=== PATIENT | male | born 1970 | race African-American/Black ===

== ENCOUNTER 2024-01-24 21:33 | Inpatient (IN) | payer MEDICAID ==
[~2024-01-24] VITALS: Ht 182.9 cm; Wt 61.2 kg
[2024-01-25 00:13] LABS: CHLORIDE 94 mEq/L (98-107); POTASSIUM 4.3 mEq/L (3.5-5.1); SODIUM 127 mEq/L (136-145)
[2024-01-25 00:14] LABS: CALCIUM 8.4 mg/dL (8.7-10.4); CARBON DIOXIDE 23 mEq/L (21-32)
[2024-01-25] MEDS: SODIUM CHLORIDE 0.9% 1,000 ML IV ONE (00:15)
[2024-01-25 00:17] LABS: HEMATOCRIT. 44.3 % (42.0-52.0); HEMOGLOBIN. 14.1 g/dL (14.0-18.0); MEAN CORPUSCULAR HEMOGLOBIN 24.8 pg (28.0-32.0); MEAN CORPUSCULAR HGB CONC 31.8 g/dL (31.0-37.0); MEAN CORPUSCULAR VOLUME 77.8 fL (80.0-94.0); MEAN PLATELET VOLUME 8.9 fl (7.4-10.4); PLATELET 193 x1000/uL (130-400); RED CELL DISTRIBUTION WIDTH 13.5 % (11.6-14.6); WHITE BLOOD COUNT 7.2 x1000/uL (4.5-11.0)
[2024-01-25 00:19] LABS: CREATININE 1.2 mg/dL (0.6-1.3); GLUCOSE 301 mg/dL (70-105)
[2024-01-25 00:20] LABS: UREA NITROGEN BLOOD 32 mg/dL (9-23)
[2024-01-25 00:21] LABS: ALANINE AMINOTRANSFERASE 50 IU/L (10-49); ALBUMIN 3.5 g/dL (3.2-4.8); ASPARTATE AMINOTRANSFERASE 61 IU/L (<34); BILIRUBIN DIRECT 0.1 mg/dL (<=3.0)
[2024-01-25 00:22] LABS: BETA HYDROXYBUTYRATE 1.3 mMol/L (0.0-0.3); BILIRUBIN TOTAL 0.4 mg/dL (0.1-1.0); PROTEIN TOTAL 6.2 g/dL (6.0-8.3)
[2024-01-25 00:24] LABS: ETHANOL BLOOD < 10 mg/dL (<10)
[2024-01-25 00:25] LABS: DIFFERENTIAL COMMENT 1
[2024-01-25] MEDS ORDERED: AZITHROMYCIN 500MG/250ML 250 ML IV SCH ×2 (01:45→09:00)
[2024-01-25] MEDS ORDERED: AZITHROMYCIN 500MG/250ML 250 ML IV NR (02:15)
[2024-01-25] MEDS: CEFTRIAXONE 1GM/50ML 50 ML IV ONE (02:21)
[2024-01-25] MEDS: ONDANSETRON HCL 4MG/2ML INJ IV ONE (03:02)
[2024-01-25] MEDS: HYDROCODONE/ACETAMINOPHEN 5/325MG TABLET PO ONE (03:02)
[2024-01-25] MEDS ORDERED: IPRATROPIUM/ALBUTEROL 0.5-3(2.5)MG/3ML NEB HHN PRN (05:00)
[2024-01-25] MEDS ORDERED: CLONIDINE 0.1MG TABLET PO PRN (05:00)
[2024-01-25] MEDS ORDERED: DOCUSATE SODIUM 100MG CAPSULE PO PRN (05:00)
[2024-01-25] MEDS ORDERED: MAGNESIUM/ALUMINUM HYDROXIDE/SIMETHICONE 30ML UDC PO PRN (05:00)
[2024-01-25] MEDS ORDERED: DEXTROSE 50% WATER 50ML SYRINGE IV PRN ×2 (05:00→13:30)
[2024-01-25] MEDS ORDERED: ACETAMINOPHEN 325MG TABLET PO PRN (05:00)
[2024-01-25 05:29] LABS: PLATELET ESTIMATE NORMAL
[2024-01-25 05:30] LABS: HYPOCHROMASIA 1+; MICROCYTOSIS 1+
[2024-01-25] MEDS ORDERED: LOSA50TA41 PO (05:51)
[2024-01-25] MEDS ORDERED: INSU100I95 SUBCUT (05:51)
[2024-01-25] MEDS ORDERED: ATOR20TA65 PO (05:52)
[2024-01-25] MEDS: VANCOMYCIN 1.5GM/250ML IV NR (06:06)
[2024-01-25] MEDS: INSULIN REGULAR (HUMULIN R) 1000UNITS/10ML VIAL IV NR (06:14)
[2024-01-25] MEDS ORDERED: INSULIN LISPRO 100 UNITS/ML SUBCUT SCH (08:20)
[2024-01-25 08:46] LABS: CALCIUM 8.2 mg/dL (8.7-10.4); CARBON DIOXIDE 23 mEq/L (21-32); CHLORIDE 97 mEq/L (98-107); POTASSIUM 4.3 mEq/L (3.5-5.1); SODIUM 128 mEq/L (136-145)
[2024-01-25 08:51] LABS: CREATININE 1.2 mg/dL (0.6-1.3); GLUCOSE 283 mg/dL (70-105); IRON 13 ug/dL (65-175)
[2024-01-25 08:52] LABS: LDL CHOLESTEROL 61 mg/dL (5-100); TRIGLYCERIDE 91 mg/dL (0-150); TROPONIN I HIGH SENSITIVITY 6 ng/L (3.0-53); UREA NITROGEN BLOOD 32 mg/dL (9-23)
[2024-01-25 08:53] LABS: CHOLESTEROL 147 mg/dL (<200); HDL CHOLESTEROL 52 mg/dL (>55)
[2024-01-25 08:54] LABS: PHOSPHORUS 2.7 mg/dL (2.5-4.9)
[2024-01-25 08:55] LABS: T4 FREE 1.07 ng/dL (0.89-1.76)
[2024-01-25 08:56] LABS: THYROID STIMULATING HORMONE 2.23 uIU/mL (0.55-4.78)
[2024-01-25] MEDS ORDERED: ATORVASTATIN CALCIUM 20MG TABLET PO SCH (09:00)
[2024-01-25 09:39] LABS: TOTAL IRON BINDING CAPACITY 215 ug/dl (250-425)
[2024-01-25] MEDS ORDERED: SODIUM CHLORIDE 0.9% 1,000 ML IV ONE (09:45)
[2024-01-25] MEDS: BLOOD SUGAR DIAGNOSTIC STRIP TEST SCH ×2 (10:11→14:25)
[2024-01-25] MEDS ORDERED: FOLIC ACID 1 MG, THIAMINE HCL 100 MG, MVI, ADULT NO.1 10 ML in DEXTROSE 5% WATER 1,000 ML IV ONE (11:00)
[2024-01-25 11:10] VITALS: BP 150/86; PULSE 72; RESP 18; TEMP 36.2512
[2024-01-25] MEDS: MULTIVITAMINS,THER W-MINERALS TABLET PO SCH (14:00)
[2024-01-25] MEDS: THIAMINE HCL 100MG TABLET PO SCH (14:01)
[2024-01-25] MEDS: LOSARTAN 50 MG TABLET PO SCH (14:01)
[2024-01-25] MEDS: FOLIC ACID 1MG TABLET PO SCH (14:01)
[2024-01-25] MEDS: INSULIN GLARGINE 100 UNITS/ML SUBCUT SCH (14:23)
[2024-01-25] MEDS: INSULIN LISPRO 100 UNITS/ML SUBCUT SCH (14:25)
[2024-01-25] MEDS: AZITHROMYCIN 500MG/250ML 250 ML IV SCH (15:08)
[2024-01-25] MEDS: ONDANSETRON HCL 4MG/2ML INJ IV PRN (15:37)
[2024-01-25 16:00] VITALS: BP 127/85; PULSE 84; RESP 20; TEMP 36.33624; O2SAT 98
[2024-01-25] MEDS: FOLIC ACID 1 MG, THIAMINE HCL 100 MG, MVI, ADULT NO.1 10 ML in DEXTROSE 5% WATER 1,000 ML IV ONE (18:14)
[2024-01-25 20:00] VITALS: BP 107/72; PULSE 77; RESP 18; TEMP 37.00296; O2SAT 97
[2024-01-25] MEDS ORDERED: VANCOMYCIN 750MG/150ML (BAXTER) IV SCH (21:00)
[2024-01-25] MEDS: FAMOTIDINE 20MG TABLET PO SCH (21:37)
[2024-01-25] MEDS: VANCOMYCIN 750MG/150ML (BAXTER) IV SCH (21:37)
[2024-01-25] MEDS: ATORVASTATIN CALCIUM 20MG TABLET PO SCH (21:37)
[2024-01-26] VITALS (10 sets, daily range): BP systolic 94–138; BP diastolic 53–90; PULSE 59–81; RESP 18–20; TEMP 36.05844–36.89184; O2SAT 92–100
[2024-01-26 00:04] LABS: CLARITY URINE CLEAR (CLEAR); COLOR URINE YELLOW (YELLOW); GLUCOSE URINE 3+ (NEGATIVE); KETONES URINE NEGATIVE (NEGATIVE); LEUKOCYTE ESTERASE URINE NEGATIVE (NEGATIVE); NITRITE URINE NEGATIVE (NEGATIVE); OCCULT BLOOD URINE NEGATIVE (NEGATIVE); PROTEIN URINE 2+ (NEGATIVE)
[2024-01-26 00:13] LABS: *AMPHETAMINES SCREEN URINE NEGATIVE (NEGATIVE); *BARBITURATES SCREEN URINE NEGATIVE (NEGATIVE); *BENZODIAZEPINES SCREEN URINE NEGATIVE (NEGATIVE); *COCAINE SCREEN URINE NEGATIVE (NEGATIVE); CANNABINOID URINE SCREEN PRESUMPTIVE POSITIVE (NEGATIVE); ECSTASY MDMA SCREEN URINE NEGATIVE (NEGATIVE); METHADONE URINE SCREEN NEGATIVE (NEGATIVE); OPIATES URINE SCREEN NEGATIVE (NEGATIVE); PHENCYCLIDINE URINE SCREEN NEGATIVE (NEGATIVE)
[2024-01-26 00:53] LABS: BACTERIA URINE TRACE; RBC URINE NONE SEEN /hpf (0-2); SQUAMOUS EPITHELIAL CELL URINE NONE SEEN /lpf (RARE/1+); WBC URINE NONE SEEN /hpf (0-2)
[2024-01-26] MEDS ORDERED: CEFTRIAXONE 1GM/50ML 50 ML IV SCH ×2 (01:00→05:00)
[2024-01-26] MEDS: CEFTRIAXONE 1GM/50ML 50 ML IV SCH (01:14)
[2024-01-26] MEDS: IPRATROPIUM/ALBUTEROL 0.5-3(2.5)MG/3ML NEB HHN SCH (03:38)
[2024-01-26] MEDS: INSULIN LISPRO 100 UNITS/ML SUBCUT SCH ×2 (06:58→09:47)
[2024-01-26] MEDS ORDERED: DEXTROSE 50% WATER 50ML SYRINGE IV PRN (07:00)
[2024-01-26 07:53] LABS: BASOPHILS % 0.1 % (0.0-2.0); DIFFERENTIAL COMMENT 0; EOSINOPHILS % 0.2 % (0.0-5.0); HEMATOCRIT. 40.9 % (42.0-52.0); HEMOGLOBIN. 12.7 g/dL (14.0-18.0); LYMPHOCYTES % 10.3 % (20.0-50.0); MEAN CORPUSCULAR HEMOGLOBIN 24.5 pg (28.0-32.0); MEAN CORPUSCULAR HGB CONC 31.2 g/dL (31.0-37.0); MEAN CORPUSCULAR VOLUME 78.7 fL (80.0-94.0); MEAN PLATELET VOLUME 9.1 fl (7.4-10.4); MONOCYTES % 5.4 % (2.0-8.0); PLATELET 188 x1000/uL (130-400); RED BLOOD CELL COUNT 5.19 mill/uL (4.7-6.1); RED CELL DISTRIBUTION WIDTH 13.6 % (11.6-14.6); WHITE BLOOD COUNT 6.6 x1000/uL (4.5-11.0)
[2024-01-26 08:05] LABS: CARBON DIOXIDE 23 mEq/L (21-32); CHLORIDE 98 mEq/L (98-107); SODIUM 129 mEq/L (136-145)
[2024-01-26 08:06] LABS: CALCIUM 8.3 mg/dL (8.7-10.4)
[2024-01-26 08:09] LABS: CREATININE 1.2 mg/dL (0.6-1.3)
[2024-01-26 08:10] LABS: GLUCOSE 379 mg/dL (70-105)
[2024-01-26 08:11] LABS: UREA NITROGEN BLOOD 27 mg/dL (9-23)
[2024-01-26] MEDS: BLOOD SUGAR DIAGNOSTIC STRIP TEST SCH (08:31)
[2024-01-26] MEDS: ACETYLCYSTEINE 200MG/ML 20% VIAL 4ML INH SCH (09:21)
[2024-01-26] MEDS: GUAIFENESIN 200MG/10ML SUGAR FREE UDC PO PRN (09:46)
[2024-01-26] MEDS: LORAZEPAM 2MG/ML INJ IV PRN (09:46)
[2024-01-26] MEDS: INSULIN REGULAR (HUMULIN R) 1000UNITS/10ML VIAL IV NR (09:47)
[2024-01-26] MEDS: INSULIN GLARGINE 100 UNITS/ML SUBCUT SCH ×2 (09:48→21:11)
[2024-01-26] MEDS: ENOXAPARIN 40MG/0.4ML SYR SUBCUT SCH (09:49)
[2024-01-26] MEDS: BENZONATATE 100MG CAPSULE PO PRN (11:24)
[2024-01-27] VITALS (10 sets, daily range): BP systolic 121–143; BP diastolic 74–81; PULSE 62–88; RESP 18–20; TEMP 36.55848–36.89184; O2SAT 96–100
[2024-01-27] MEDS: INSULIN GLARGINE 100 UNITS/ML SUBCUT SCH ×2 (10:53→21:10)
[2024-01-27 18:12] LABS: BASOPHILS % 0.3 % (0.0-2.0); DIFFERENTIAL COMMENT 0; EOSINOPHILS % 0.5 % (0.0-5.0); HEMATOCRIT. 37.4 % (42.0-52.0); HEMOGLOBIN. 11.9 g/dL (14.0-18.0); LYMPHOCYTES % 11.8 % (20.0-50.0); MEAN CORPUSCULAR HEMOGLOBIN 24.8 pg (28.0-32.0); MEAN CORPUSCULAR HGB CONC 31.7 g/dL (31.0-37.0); MEAN CORPUSCULAR VOLUME 78.3 fL (80.0-94.0); MEAN PLATELET VOLUME 9.5 fl (7.4-10.4); MONOCYTES % 11.6 % (2.0-8.0); NEUTROPHILS % 75.8 % (40.0-76.0); PLATELET 232 x1000/uL (130-400); RED BLOOD CELL COUNT 4.78 mill/uL (4.7-6.1); RED CELL DISTRIBUTION WIDTH 13.3 % (11.6-14.6); WHITE BLOOD COUNT 8.7 x1000/uL (4.5-11.0)
[2024-01-27 18:17] LABS: CHLORIDE 102 mEq/L (98-107); POTASSIUM 3.6 mEq/L (3.5-5.1); SODIUM 135 mEq/L (136-145)
[2024-01-27 18:18] LABS: CARBON DIOXIDE 23 mEq/L (21-32)
[2024-01-27 18:23] LABS: CREATININE 1.1 mg/dL (0.6-1.3); UREA NITROGEN BLOOD 20 mg/dL (9-23)
[2024-01-27 18:24] LABS: GLUCOSE 143 mg/dL (70-105)
[2024-01-27] MEDS: METOPROLOL TARTRATE 25MG TABLET PO SCH (21:10)
[2024-01-27] MEDS ORDERED: INSULIN GLARGINE 100 UNITS/ML SUBCUT SCH (22:00)
[2024-01-28 02:40] VITALS: PULSE 85; RESP 18; O2SAT 98
[2024-01-28 08:00] VITALS: BP 152/91; PULSE 79; RESP 16; TEMP 36.33624; O2SAT 99
[2024-01-28 08:26] LABS: BASOPHILS % 0.4 % (0.0-2.0); DIFFERENTIAL COMMENT 0; EOSINOPHILS % 0.4 % (0.0-5.0); HEMATOCRIT. 36.3 % (42.0-52.0); HEMOGLOBIN. 11.6 g/dL (14.0-18.0); MEAN CORPUSCULAR HEMOGLOBIN 24.9 pg (28.0-32.0); MEAN CORPUSCULAR VOLUME 77.9 fL (80.0-94.0); MONOCYTES % 14.7 % (2.0-8.0); NEUTROPHILS % 68.5 % (40.0-76.0); PLATELET 269 x1000/uL (130-400); RED BLOOD CELL COUNT 4.66 mill/uL (4.7-6.1); RED CELL DISTRIBUTION WIDTH 13.4 % (11.6-14.6); WHITE BLOOD COUNT 9.3 x1000/uL (4.5-11.0)
[2024-01-28 08:32] LABS: CHLORIDE 106 mEq/L (98-107); POTASSIUM 3.6 mEq/L (3.5-5.1); SODIUM 137 mEq/L (136-145)
[2024-01-28 08:33] LABS: CARBON DIOXIDE 25 mEq/L (21-32)
[2024-01-28 08:38] LABS: CREATININE 1.1 mg/dL (0.6-1.3); GLUCOSE 98 mg/dL (70-105); UREA NITROGEN BLOOD 17 mg/dL (9-23)
[2024-01-28] MEDS: LOSARTAN 25 MG TABLET PO SCH (09:49)
[2024-01-28] MEDS: AZITHROMYCIN 500 MG TABLET PO SCH (10:20)
[2024-01-28] MEDS: FAMOTIDINE 20MG TABLET PO SCH (10:20)
[2024-01-28 12:00] VITALS: BP 144/79; PULSE 77; RESP 18; TEMP 36.22512; O2SAT 99
[2024-01-28] MEDS: INSULIN LISPRO 100 UNITS/ML SUBCUT SCH (13:28)
[2024-01-28 13:50] VITALS: PULSE 69; RESP 16; O2SAT 97
[2024-01-28 16:00] VITALS: BP 147/86; PULSE 86; RESP 20; TEMP 36.22512; O2SAT 96
[2024-01-28 20:00] VITALS: BP 123/58; PULSE 92; RESP 19; TEMP 38.16972; O2SAT 98
[2024-01-28] MEDS: INSULIN GLARGINE 100 UNITS/ML SUBCUT SCH (21:14)
[2024-01-29] VITALS (10 sets, daily range): BP systolic 117–150; BP diastolic 55–80; PULSE 79–97; RESP 16–20; TEMP 36.114–36.78072; O2SAT 97–100
[2024-01-29 08:37] LABS: CHLORIDE 104 mEq/L (98-107); POTASSIUM 4.3 mEq/L (3.5-5.1); SODIUM 137 mEq/L (136-145)
[2024-01-29 08:38] LABS: CALCIUM 9.2 mg/dL (8.7-10.4); CARBON DIOXIDE 24 mEq/L (21-32)
[2024-01-29 08:43] LABS: CREATININE 1.2 mg/dL (0.6-1.3); UREA NITROGEN BLOOD 18 mg/dL (9-23)
[2024-01-29 08:50] LABS: GLUCOSE 309 mg/dL (70-105)
[2024-01-29 09:02] LABS: BASOPHILS % 0.4 % (0.0-2.0); DIFFERENTIAL COMMENT 0; EOSINOPHILS % 0.5 % (0.0-5.0); HEMATOCRIT. 36.5 % (42.0-52.0); HEMOGLOBIN. 11.7 g/dL (14.0-18.0); LYMPHOCYTES % 16.7 % (20.0-50.0); MEAN CORPUSCULAR HEMOGLOBIN 25.2 pg (28.0-32.0); MEAN CORPUSCULAR HGB CONC 32.2 g/dL (31.0-37.0); MEAN CORPUSCULAR VOLUME 78.3 fL (80.0-94.0); MEAN PLATELET VOLUME 9.2 fl (7.4-10.4); MONOCYTES % 13.7 % (2.0-8.0); NEUTROPHILS % 68.7 % (40.0-76.0); PLATELET 327 x1000/uL (130-400); RED BLOOD CELL COUNT 4.66 mill/uL (4.7-6.1); RED CELL DISTRIBUTION WIDTH 13.4 % (11.6-14.6)
[2024-01-29] MEDS: INSULIN GLARGINE 100 UNITS/ML SUBCUT SCH (09:11)
[2024-01-30] VITALS: BP 144/67; PULSE 92; RESP 19; TEMP 36.3918; O2SAT 98
[2024-01-30 03:08] VITALS: PULSE 75; RESP 18; O2SAT 97
[2024-01-30 06:55] LABS: CARBON DIOXIDE 25 mEq/L (21-32); CHLORIDE 106 mEq/L (98-107); SODIUM 139 mEq/L (136-145)
[2024-01-30 06:56] LABS: CALCIUM 8.8 mg/dL (8.7-10.4)
[2024-01-30 07:01] LABS: CREATININE 1.1 mg/dL (0.6-1.3); GLUCOSE 171 mg/dL (70-105); UREA NITROGEN BLOOD 17 mg/dL (9-23)
[2024-01-30 07:26] LABS: HEMATOCRIT 35.5 % (42.0-52.0); HEMOGLOBIN 11.5 g/dL (14.0-18.0); MEAN CORPUSCULAR HEMOGLOBIN 25.4 pg (28.0-32.0); MEAN CORPUSCULAR HGB CONC 32.3 g/dL (31.0-37.0); MEAN CORPUSCULAR VOLUME 78.5 fL (80.0-94.0); PLATELET 364 x1000/uL (130-400); RED BLOOD CELL COUNT 4.52 mill/uL (4.7-6.1); RED CELL DISTRIBUTION WIDTH 13.3 % (11.6-14.6); WHITE BLOOD COUNT 8.6 x1000/uL (4.5-11.0)
[2024-01-30 08:00] VITALS: BP 149/87; PULSE 92; RESP 18; TEMP 36.05844; O2SAT 93
[2024-01-30] MEDS ORDERED: LANTUSUD SUBCUT ×2 (11:01)
[2024-01-30] MEDS ORDERED: ATOR20TA PO (11:01)
[2024-01-30] MEDS ORDERED: INSLIS SUBCUT (11:01)
[2024-01-30] MEDS ORDERED: METO25TA6 PO (11:01)
[2024-01-30] MEDS ORDERED: FOLI-43 PO (11:01)
[2024-01-30] MEDS ORDERED: LOSA25TA26 PO (11:01)
[2024-01-30] MEDS ORDERED: AMOX1TAB16 MT (11:01)
[2024-01-30] MEDS ORDERED: SULF1TAB48 MT (11:02)
[2024-01-30 12:00] VITALS: RESP 18
[2024-01-30 14:53] VITALS: BP 149/87; PULSE 75; TEMP 96.9; O2SAT 93
== END 2024-01-30 15:55 | disposition home or self-care (01) | DRG 133 ==
LOC: ER 21:33 → 7WST 01-25 01:36
PROVIDERS: ADMIT Preventive Medicine Clinical Informatics; ATTEND Preventive Medicine Clinical Informatics
DX: J96.01 Acute respiratory failure with hypoxia (principal); J15.9 Unspecified bacterial pneumonia; J12.9 Viral pneumonia, unspecified; R65.10 Systemic inflammatory response syndrome (SIRS) of non-infectious origin without acute organ dysfunction; E87.1 Hypo-osmolality and hyponatremia; I47.10 Supraventricular tachycardia, unspecified; E11.65 Type 2 diabetes mellitus with hyperglycemia; D64.9 Anemia, unspecified; I10 Essential (primary) hypertension; D50.9 Iron deficiency anemia, unspecified; Z20.822 Contact with and (suspected) exposure to COVID-19; R74.01 Elevation of levels of liver transaminase levels; F10.10 Alcohol abuse, uncomplicated; Y90.9 Presence of alcohol in blood, level not specified; E78.00 Pure hypercholesterolemia, unspecified; F15.10 Other stimulant abuse, uncomplicated; F17.210 Nicotine dependence, cigarettes, uncomplicated; Z53.20 Procedure and treatment not carried out because of patient's decision for unspecified reasons; Z91.148 Patient's other noncompliance with medication regimen for other reason; Z79.4 Long term (current) use of insulin; Z59.01 Sheltered homelessness; Z79.84 Long term (current) use of oral hypoglycemic drugs; Z79.899 Other long term (current) drug therapy; Z83.3 Family history of diabetes mellitus; Z88.0 Allergy status to penicillin
CPT/HCPCS: 36415; 71045; 80048; 80061; 80076; 80202; 80305; 80320; 81003; 82010; 82728; 82962; 83036; 83540; 83550; 83605; 83735; 83880; 84100; 84145; 84439; 84443; 84484; 85025; 85027; 87070; 87426; 87449; 87804; 93005; 93306; 94070; 94640; 97161; 97165; 99285; J0456; J0696; J1650; J1815; J2060; J2405; J3370; J3411; J3490; J7030; J7070; J7608; G0480

== ENCOUNTER 2024-08-18 22:31 | Emergency (ER) | payer MEDICAID ==
[~2024-08-18] VITALS: Ht 182.9 cm; Wt 82.0 kg
[~2024-08-18 22:31] MED LIST: AMOX1TAB16 MT; ATOR20TA PO; ATOR20TA65 PO; FOLI-43 PO; INSLIS SUBCUT; INSU100I95 SUBCUT; LANTUSUD SUBCUT; LOSA25TA26 PO; METO25TA6 PO; SULF1TAB48 MT
[2024-08-18 22:33] VITALS: TEMP 37.1; O2SAT 96
[2024-08-18] MEDS: SODIUM CHLORIDE 0.9% 1,000 ML IV ONE (23:16)
[2024-08-18 23:22] LABS: CLARITY URINE CLEAR (CLEAR); COLOR URINE YELLOW (YELLOW); GLUCOSE URINE 3+ (NEGATIVE); KETONES URINE TRACE (NEGATIVE); LEUKOCYTE ESTERASE URINE NEGATIVE (NEGATIVE); NITRITE URINE NEGATIVE (NEGATIVE); OCCULT BLOOD URINE NEGATIVE (NEGATIVE); PH URINE 6.5 (4.5-8.0); PROTEIN URINE NEGATIVE (NEGATIVE); SPECIFIC GRAVITY URINE 1.023 (1.005-1.030); UROBILINOGEN URINE 0.2 E.U./dL (0.2-1.0)
[2024-08-18 23:29] LABS: BASOPHILS % 0.2 % (0.0-2.0); EOSINOPHILS % 0.1 % (0.0-5.0); HEMATOCRIT. 40.4 % (42.0-52.0); HEMOGLOBIN. 12.6 g/dL (14.0-18.0); LYMPHOCYTES % 9.4 % (20.0-50.0); MEAN PLATELET VOLUME 9.2 fl (7.4-10.4); MONOCYTES % 6.6 % (2.0-8.0); NEUTROPHILS % 83.7 % (40.0-76.0); PLATELET 227 x1000/uL (130-400); RED BLOOD CELL COUNT 5.20 mill/uL (4.7-6.1); RED CELL DISTRIBUTION WIDTH 14.2 % (11.6-14.6)
[2024-08-18] MEDS: INSULIN REGULAR (HUMULIN R) 1000UNITS/10ML VIAL IV ONE (23:31)
[2024-08-18 23:34] LABS: UREA NITROGEN BLOOD 24.0 mg/dL (9-23)
[2024-08-18 23:41] LABS: CREATININE 1.8 mg/dL (0.6-1.3)
[2024-08-19] MEDS ORDERED: LANTUSUD SUBCUT (00:12)
[2024-08-19 00:30] VITALS: BP 150/81; PULSE 63; RESP 25; O2SAT 97
[2024-08-19 01:22] LABS: BACTERIA URINE NONE SEEN; RBC URINE NONE SEEN /hpf (0-2); SQUAMOUS EPITHELIAL CELL URINE NONE SEEN /lpf (RARE/1+); WBC URINE NONE SEEN /hpf (0-2)
== END 2024-08-19 00:52 | disposition home or self-care (01) ==
LOC: ER 22:31
DX: E11.65 Type 2 diabetes mellitus with hyperglycemia (principal); I10 Essential (primary) hypertension; Z79.4 Long term (current) use of insulin; Z79.899 Other long term (current) drug therapy; Z88.1 Allergy status to other antibiotic agents; Z91.148 Patient's other noncompliance with medication regimen for other reason
CPT/HCPCS: 99283; 96374; 96361; 80048; 81003; 82010; 82962; 85025; 36415; J7030; J1815